=== PATIENT | female | born 1995 | race Two or more races ===

== ENCOUNTER 2017-06-16 19:17 | Emergency (ER) | payer MEDICAID, OTHER ==
[~2017-06-16] VITALS: Ht 154.9 cm; Wt 108.9 kg
[2017-06-16 19:48] VITALS: BP 118/82
[2017-06-16 21:02] LABS: Basophils # (auto) 0 uL; Basophils % (auto) 0.4 % (0.0-2.0); CONDITION Y; Eosinophils # (auto) 0 uL; Eosinophils % (auto) 0.2 % (0.0-7.0); Hematocrit 45.8 % (36.0-46.0); Hemoglobin 15.7 g/dL (12.2-16.2); Lymphocytes # (auto) 2.2 uL; Lymphocytes % (auto) 28.8 % (10.0-50.0); Mean Corpuscular Hgb Conc. 34.2 g/dL (32.0-36.0); Mean Corpuscular Volume 87.6 fL (80.0-100.0); Mean Platelet Volume 8.8 fL (7.4-10.4); Monocytes # (auto) 0.5 uL; Monocytes % (auto) 6.4 % (0.0-12.0); Neutrophils # (auto) 4.9 uL; Neutrophils % (auto) 64.2 % (37.0-80.0); Platelet Count (auto) 352 10^3/uL (140-450); Red Cell Distribution Width 13.5 % (11.6-16.0); White Blood Cell 7.6 10^3/uL (4.4-10.8)
[2017-06-16 21:26] LABS: Alkaline Phosphatase 106 U/L (45-117); Anion Gap 11 (5-15); Aspartate Aminotransferase 22 U/L (15-37); BUN/Creatinine Ratio 15.1; Bilirubin, Total 0.3 mg/dL (0.2-1.0); Blood Urea Nitrogen 14 mg/dL (7-18); Calcium 9.4 mg/dL (8.5-10.1); Carbon Dioxide 22 mmol/L (21-32); Chloride 107 mmol/L (98-107); GFR African American 96 mL/min; GFR Non-African American 79 mL/min; Glucose 105 mg/dL (74-106); Magnesium 2.5 mg/dL (1.6-2.6); Potassium 3.9 mmol/L (3.5-5.1); Sodium 140 mmol/L (136-145); Total Protein 8.6 g/dL (6.4-8.2)
== END 2017-06-17 02:53 | disposition left against medical advice (07) ==
LOC: ER 19:20
DX: R07.89 Other chest pain (principal); Z53.21 Procedure and treatment not carried out due to patient leaving prior to being seen by health care provider
CPT/HCPCS: 36415; 71010; 80053; 80307; 83735; 84484; 84702; 85025; 93005

== ENCOUNTER 2017-11-06 20:55 | Emergency (ER) | payer MEDICAID ==
[~2017-11-06] VITALS: Ht 157.5 cm; Wt 100.7 kg
[2017-11-06 21:07] VITALS: BP 130/95
== END 2017-11-06 23:10 | disposition home or self-care (01) ==
LOC: ER 20:55
DX: R51 Headache (principal)

== ENCOUNTER 2019-07-01 14:01 | Emergency (ER) | payer MEDICAID ==
[~2019-07-01] VITALS: Ht 157.5 cm; Wt 109.8 kg
[2019-07-01 14:36] VITALS: BP 125/76
[2019-07-01] MEDS ORDERED: cefTRIAXone SOD 1,000 MG VL IM ONE (17:15)
== END 2019-07-01 17:26 | disposition home or self-care (01) ==
LOC: ER 14:01
DX: H66.93 Otitis media, unspecified, bilateral (principal)